=== PATIENT | male | born 1965 | race Caucasian/White ===

== ENCOUNTER 2022-10-31 19:14 | Inpatient (IN) | payer MEDICAID ==
[~2022-10-31] VITALS: Ht 165.1 cm; Wt 93.9 kg
[2022-10-31 19:22] VITALS: BP 148/80
--- NOTE | 2022-10-31 19:36 | NUR ---
Patient taken to bed 8.
--- NOTE | 2022-10-31 19:58 | NUR ---
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 20G IV CATH PLACED IN L AC
--- NOTE | 2022-10-31 20:07 | NUR ---
57YR MALE BIB SELF C/O MULTIPLE SX. PT STATES HAVING GEN BODY PAIN AND LL EDEMA [id number]. 07/03 PAIN. 2+NON PITTING EDEMA LL EXT. DENIES CP IS SOB SP02 99% ON RA. PT IS ON BEDSIDE FISCAL SPECIALIST. HOB ELEVATED. BED AT LOWEST LEVEL SIDE RAILS UP X2 NKDA EPILEPSY
--- NOTE | 2022-10-31 20:26 | NUR ---
Patient being evaluated by physician at bedside.
--- NOTE | 2022-10-31 20:26 | NUR ---
Dr. Mcfarland examining patient.
--- NOTE | 2022-10-31 21:03 | NUR ---
XRAY AT BEDSIDE. LABS AND COVID SWAB COLLECTED AND SENT TO LAB.
--- NOTE | 2022-10-31 21:04 | NUR ---
PT STEMI TRANSFER OUT TO [facility]. ETA PENDING
[2022-10-31] MEDS ORDERED: MORPHINE SULFATE 4 MG/ML SYR ONE (21:11)
[2022-10-31] MEDS ORDERED: ONDANSETRON 4 MG/2 ML VIAL ONE (21:11)
[2022-10-31 21:13] LABS: BASOPHILS # (AUTO) 0.1 K/uL (0.00-0.22); BASOPHILS % (AUTO) 1.2 % (0.0-2.0); EOSINOPHILS % (AUTO) 0.1 % (0.0-4.0); LYMPHOCYTES % (AUTO) 19.4 % (20.5-51.1); MEAN CORPUSCULAR HEMOGLOBIN 16 pg (27-31); MEAN CORPUSCULAR HGB CONC 28 g/dL (33-37); MEAN CORPUSCULAR VOLUME 58.5 fL (80-94); MONOCYTES # (AUTO) 0.4 K/uL (0.8-1.0); MONOCYTES % (AUTO) 8.4 % (1.7-9.3); NEUTROPHILS # (AUTO) 3.7 K/uL (1.8-7.7); NEUTROPHILS % (AUTO) 70.9 % (42.2-75.2); PLATELET COUNT (AUTO) 300 K/uL (140-450); RED BLOOD CELL COUNT(AUTO) 1.35 MIL/uL (4.20-6.10); RED CELL DISTRIBUTION WIDTH 22.2 % (11.6-13.7); WHITE BLOOD COUNT (AUTO) 5.2 K/uL (4.8-10.8)
[2022-10-31] MEDS ORDERED: ONDANSETRON 4 MG/2 ML VIAL IVP STA (21:15)
[2022-10-31] MEDS ORDERED: MORPHINE SULFATE 4 MG/ML SYR IVP STA (21:15)
[2022-10-31 21:16] LABS: HEMATOCRIT 7.9 % (36-52); HEMOGLOBIN 2.2 g/dL (12.0-18.0)
--- NOTE | 2022-10-31 21:25 | NUR ---
PT IS PENDING ADMISSION ICU ADMIT.
--- NOTE | 2022-10-31 21:26 | NUR ---
SECOND HEMO 2.2 DR HOLM NOTIFED
--- NOTE | 2022-10-31 21:35 | NUR ---
BLOOD TRANSFUSION CONSTENT SIGNED
[2022-10-31 21:37] LABS: PROTHROMBIN TIME 13.2 secs (10.8-13.4)
--- NOTE | 2022-10-31 21:38 | NUR ---
Patient taken to CT scan via gurney.
[2022-10-31 21:39] LABS: ALBUMIN 3.4 g/dL (3.4-5.0); ANION GAP 16.1 (8-16); CARBON DIOXIDE 22.1 mmol/L (21-32); CREATININE 0.9 mg/dL (0.6-1.3); POTASSIUM 4.2 mmol/L (3.5-5.1); TOTAL BILIRUBIN 0.6 mg/dL (0.0-1.0)
[2022-10-31] MEDS: BENZOCAINE/MENTHOL 1 LOZ MM PRN ×2 (22:04→22:17)
[2022-10-31] MEDS ORDERED: ONDANSETRON 4 MG/2 ML VIAL IVP PRN (22:10)
[2022-10-31] MEDS ORDERED: LORazepam 2 MG/ML VIAL IVP PRN (22:10)
[2022-10-31] MEDS ORDERED: ZOLPIDEM 10 MG TAB PO PRN (22:10)
[2022-10-31] MEDS ORDERED: POTASSIUM CHLORIDE 10 MEQ TABER PO PRN (22:10)
[2022-10-31] MEDS ORDERED: ACETAMINOPHEN 325 MG TAB PO PRN (22:10)
[2022-10-31] MEDS ORDERED: MORPHINE SULFATE 2 MG/ML SYR IVP PRN (22:10)
[2022-10-31] MEDS ORDERED: DOCUSATE SODIUM 100 MG GELCAP PO PRN (22:10)
[2022-10-31] MEDS ORDERED: MAG SULF 2000 MG/WATER PREMIX 50 ML IV PRN (22:10)
[2022-10-31] MEDS ORDERED: [UNRECOGNIZED DRUG - CODE] PO (22:20)
[2022-10-31] MEDS ORDERED: AMOX500C25 PO (22:22)
[2022-10-31] MEDS ORDERED: ASPI-1822 PO (22:22)
[2022-10-31 22:23] LABS: BASOPHILS % (AUTO) 0.6 % (0.0-2.0); EOSINOPHILS % (AUTO) 0.1 % (0.0-4.0); LYMPHOCYTES # (AUTO) 1.1 K/uL (2.0-11.5); LYMPHOCYTES % (AUTO) 21.9 % (20.5-51.1); MEAN CORPUSCULAR HEMOGLOBIN 16 pg (27-31); MEAN CORPUSCULAR HGB CONC 27 g/dL (33-37); MONOCYTES # (AUTO) 0.5 K/uL (0.8-1.0); MONOCYTES % (AUTO) 9.9 % (1.7-9.3); NEUTROPHILS # (AUTO) 3.3 K/uL (1.8-7.7); NEUTROPHILS % (AUTO) 67.5 % (42.2-75.2); PLATELET COUNT (AUTO) 304 K/uL (140-450); RED BLOOD CELL COUNT(AUTO) 1.32 MIL/uL (4.20-6.10); RED CELL DISTRIBUTION WIDTH 22.7 % (11.6-13.7); WHITE BLOOD COUNT (AUTO) 4.8 K/uL (4.8-10.8)
[2022-10-31] MEDS ORDERED: IBUP-2213 PO (22:23)
--- NOTE | 2022-10-31 22:23 | NUR ---
MED RECONCILE DONE
--- NOTE | 2022-10-31 22:34 | NUR ---
Consent signed per tracie Dia agreeing to administration of blood. Blood has been type and crossmatched. Blood sent from blood bank. Information on unit of blood checked against patient wristband at bedside by two nurses. All information matches. Patient or responsible green party informed of potential complications associated with blood transfusion. Informed of possible transfusion reaction symptoms. Aware of need to notify nurse at once of itching, shortness of breath, flushing, feeling of impending doom, or other symptoms not previously present. Vital signs taken within 5 minutes prior to initiation of transfusion. RN will remain with patient for first 15 minutes of transfusion at which time vital signs will be re-assessed.
--- NOTE | 2022-10-31 22:34 | NUR ---
1st unit PRBC initiated. VSS at this time.
[2022-10-31 22:40] LABS: HEMATOCRIT 7.8 % (36-52); HEMOGLOBIN 2.1 g/dL (12.0-18.0)
--- NOTE | 2022-10-31 22:51 | NUR ---
1st unit PRBC finished. no reaction at this time.
--- NOTE | 2022-10-31 22:58 | NUR ---
2nd unit PRBC initiated at this time. CTM
--- NOTE | 2022-10-31 23:38 | NUR ---
report given to Serena FOOTE . pt will be transported to ICU bed 01.
--- NOTE | 2022-10-31 23:45 | NUR ---
RECEIVED PT. FROM ER. REPORT GIVEN BY DARY KOENIG. PT. AWAKE, ALERT,ORIENTED AND AMERICAN SPEAKING. PT. ABLE TO FOLLOW COMMANDS AND ABLE TO EXPRESS NEEDS. ON ROOM AIR WITH 02 SAT 97%. BILATERAL LUNG SOUNDS CLEAR. ACCORDING TO THE PT. HE HAS A BLURRED VISION. IV TO LEFT UPPER ARM 18G, LEFT AC 20G, LEFT WRIST 18G CAPPED AND FLUSHED. SITE INTACT. PT. HGB 2.2. MD ORDERED TO TRANSFUSE 4 UNITS PRBC AND RECEIVED PT. WITH THE 3RD UNIT ON-GOING BLOOD TRANSFUSION. PT. USE URINAL. SKIN INTACT. MAKE ALL NEEDS KNOWN. PT. NO S/S OF PAIN. WILL ENDORSE TO THE NEXT SHIFT.
[2022-11-01] VITALS: BP 138/80
[2022-11-01 02:00] VITALS: BP 132/67
[2022-11-01 04:00] VITALS: BP 132/90
--- NOTE | 2022-11-01 04:06 | NUR ---
PT. 4TH UNIT OF BLOOD TRANSFUSION PER MD ORDERED IS NOW DONE. WILL ENDORSE TO THE NEXT SHIFT.
[2022-11-01 06:00] VITALS: BP 136/87
[2022-11-01 06:00] LABS: BASOPHILS # (AUTO) 0.1 K/uL (0.00-0.22); BASOPHILS % (AUTO) 1.4 % (0.0-2.0); EOSINOPHILS % (AUTO) 0.7 % (0.0-4.0); HEMATOCRIT 22.3 % (36-52); LYMPHOCYTES # (AUTO) 1.6 K/uL (2.0-11.5); LYMPHOCYTES % (AUTO) 30.4 % (20.5-51.1); MEAN CORPUSCULAR HEMOGLOBIN 25 pg (27-31); MEAN CORPUSCULAR HGB CONC 32 g/dL (33-37); MEAN CORPUSCULAR VOLUME 79.2 fL (80-94); MONOCYTES # (AUTO) 0.4 K/uL (0.8-1.0); MONOCYTES % (AUTO) 8.2 % (1.7-9.3); NEUTROPHILS # (AUTO) 3.1 K/uL (1.8-7.7); NEUTROPHILS % (AUTO) 59.3 % (42.2-75.2); PLATELET COUNT (AUTO) 197 K/uL (140-450); RED BLOOD CELL COUNT(AUTO) 2.81 MIL/uL (4.20-6.10); RED CELL DISTRIBUTION WIDTH 30.2 % (11.6-13.7); WHITE BLOOD COUNT (AUTO) 5.1 K/uL (4.8-10.8)
--- NOTE | 2022-11-01 06:00 | NUR ---
LAB CAME DRAWN THE BLOOD.
[2022-11-01 06:26] LABS: ANION GAP 12.2 (8-16); CARBON DIOXIDE 24.1 mmol/L (21-32); CREATININE 0.8 mg/dL (0.6-1.3); POTASSIUM 4.3 mmol/L (3.5-5.1)
--- NOTE | 2022-11-01 07:31 | NUR ---
REPORT GIVEN TO DARY MA FOR CONTINUITY OF CARE.
--- NOTE | 2022-11-01 07:31 | NUR ---
RECEIVED REPORT FROM LINER INSTALLER. PT AWAKE IN BED WITH HOB ELEVATED. AOX4, BANGLADESHI SPEAKING. FOLLOWS COMMANDS. NO C/O PAIN, NO RESPIRATORY DISTRESS ON ROOM AIR. WITH PERIPHERAL IVs SALINE LOCKED. HEMOGLOBIN 7.0, DR LASSITER NOTIFIED. NO NEW ORDERS AT THIS TIME.
[2022-11-01 08:00] VITALS: BP 145/67
[2022-11-01] MEDS ORDERED: BENZOCAINE/MENTHOL 1 LOZ MM PRN (09:05)
--- NOTE | 2022-11-01 09:09 | NUR ---
PATIENT HAS BEEN SCREENED AND CATEGORIZED MODERATE NUTRITION RISK. PATIENT WILL BE SEEN WITHIN 3-5 DAYS OF ADMISSION. REVIEWED BY JESUS ALBERTO SAENZ RD
[2022-11-01 10:00] VITALS: BP 146/98
--- NOTE | 2022-11-01 10:30 | NUR ---
PT STATED THAT HE FEELS FINE NOW AND WOULD LIKE TO GO HOME AND EAT. EXPLAINED TO PT THAT HE NEEDS TO BE SEEN BY GI, STAY NPO, AND COULD POSSIBLY GET AN EGD AND COLONOSCOPY. PT INSISTS THAT HE FEELS OK AND THAT THE PROCEDURES CAN BE DONE BY APPOINTMENT. PT STATED THAT HE WANTS TO GO AMA. DR LASSITER NOTIFIED AND SPOKE TO PATIENT. PT STILL WANTS TO GO HOME, EAT AND HE WILL MAKE AN APPOINTMENT TO SEE HIS PCP.
--- NOTE | 2022-11-01 11:00 | NUR ---
PT SIGNED AMA FORM. ASSISTED PT TO FRONT LOBBY. PER PT, HE WILL CALL A [facility] HIMSELF
--- NOTE | 2022-11-01 11:21 | NUR ---
DC [age] YRS OLD MALE PATIENT WAS ADMITTED FROM HOME WITH A DX OF SEVER ANEMIA. PATIENT HAS A HX OF EPILEPSY AND CHRONIC BACK PAIN SECONDARY TO DISC DISEASE. CXR SHOED PNEUMONIA AND SMALL PLEURAL EFFUSION RAPID COVID TEST NEGATIVE. H/H ON ADMISSION 2.2/7.9 TRANSFUSED 4 UNITS OF PRBC H/H POST TRANSFUSION 7.0/22.3 CONSULTED WITH [facility](CRITICAL CARE), CARDIO AND GI FOR POSSIBLE GI BLEED. DC PLAN TO TRANSFER TO [facility] WHEN STABLE CM TO FOLLOW
[2022-11-02 08:08] LABS: FOLIC ACID 14.6 ng/mL (>3.0)
== END 2022-11-01 11:00 | disposition home or self-care (01) | DRG 663 ==
LOC: MED 19:14 → MTU 21:57 → MIC 22:08
PROVIDERS: ADMIT Family Medicine; ATTEND Family Medicine
PROC: 30233N1 Transfusion of Nonautologous Red Blood Cells into Peripheral Vein, Percutaneous Approach (ICD-10-PCS; principal; 2022-10-31)
DX: D50.9 Iron deficiency anemia, unspecified (principal); R17 Unspecified jaundice; R65.10 Systemic inflammatory response syndrome (SIRS) of non-infectious origin without acute organ dysfunction; J98.11 Atelectasis; G40.909 Epilepsy, unspecified, not intractable, without status epilepticus; R60.9 Edema, unspecified; M54.89 Other dorsalgia; Z20.822 Contact with and (suspected) exposure to COVID-19
CPT/HCPCS: 36415; 36430; 71045; 80048; 80053; 82140; 82607; 82728; 82746; 83540; 83735; 83880; 84484; 85025; 85045; 85610; 85730; 86886; 86900; 86901; 86920; 87040; 87081; 93005; 96374; 96375; 99291; J2270; J2405; P9016; Q0092